=== PATIENT | female | born 1970 | race Caucasian/White ===

== ENCOUNTER → 2021-09-17 | Day surgery (SDC) | payer OTHER ==
[~2021-09-17] VITALS: Ht 170.2 cm; Wt 57.6 kg
[~2021-09-17] MED LIST: 8 HOUR650 MG PO; OXY-IR 5MG5 MG PO
== END | disposition home or self-care (01) ==
LOC: FAS 11:02
DX: C78.5 Secondary malignant neoplasm of large intestine and rectum (principal); C56.9 Malignant neoplasm of unspecified ovary; Z90.710 Acquired absence of both cervix and uterus; Z80.0 Family history of malignant neoplasm of digestive organs; Z97.5 Presence of (intrauterine) contraceptive device
CPT/HCPCS: 71045; 76000; C1788; J0690; J1100; J1644; J1885; J2001; J2250; J2405; J2704; J3010; J7120